=== PATIENT | female | born 1955 | race Caucasian/White ===

== ENCOUNTER 2017-11-06 10:19 | Day surgery (SDC) | payer OTHER ==
[2017-11-06] MEDS ORDERED: FENTAnyl 50 MCG/ML VIAL (11:23)
[2017-11-06] MEDS ORDERED: MIDAZOLAM 1 MG/ML 2 ML INJ (11:23)
[2017-11-06] MEDS ORDERED: LIDOCAINE 2% (SDV) 5 ML INJ (11:23)
[2017-11-06] MEDS ORDERED: PROPOFOL 20 ML (11:23)
== END 2017-11-06 13:14 | disposition home or self-care (01) ==
LOC: GIL 10:19
DX: Z12.11 Encounter for screening for malignant neoplasm of colon (principal); K64.8 Other hemorrhoids; E11.9 Type 2 diabetes mellitus without complications; I10 Essential (primary) hypertension; E03.9 Hypothyroidism, unspecified
CPT/HCPCS: 45378; 82962